=== PATIENT | female | born 1995 | race Hispanic/Latino ===

== ENCOUNTER 2023-08-01 14:59 | Day surgery (SDC) | payer OTHER ==
[2023-08-01] MEDS ORDERED: hydrALAZINE 20 MG/ML VIAL SLOW IVP PRN (15:07)
[2023-08-01 15:48] LABS: Creatinine, Urine 104.43 mg/dL (47-110)
[2023-08-01 16:03] VITALS: BMI 37.4
[2023-08-01 16:05] LABS: #Basophils 0.03 10x3/uL (0.0-0.2); #Eosinphils 0.08 10x3/uL (0.0-0.5); #Monocytes 0.55 10x3/uL (0.0-1.1); #Neutrophils 10.32 10x3/uL (1.5-8.4); %Basophils 0.2 % (0.0-2.0); %Eosinophils 0.6 % (0.0-6.0); %Lymphocytes 13.6 % (18.0-47.0); %Monocytes 4.3 % (0.0-10.0); %Neutrophils 80.8 % (40.0-75.0); Hematocrit 35.3 % (34.9-44.5); Mean Corpuscular Hemoglobin 27.3 pg (27.0-33.0); Mean Corpuscular Volume 80.2 fL (81.6-98.3); Mean Platelet Volume 9.9 fL (7.4-10.4); Platelet Count 388 10x3/uL (150-450); RBC Distribution Width 13.8 % (11.5-14.5); White Blood Cell (WBC) Count 12.8 10x3/uL (3.5-10.5)
[2023-08-01 16:13] LABS: ALT (SGPT) 11 U/L (8-55); AST (SGOT) 13 U/L (5-34); Albumin 2.7 g/dL (3.5-5.0); Alkaline Phosphatase 181 U/L (40-110); Anion Gap 13 mmol/L (10-20); BUN (Urea Nitrogen) 7 mg/dL (7.0-18.7); Bilirubin, Total 0.4 mg/dL (0.2-1.2); Calc. Creatinine Clearance 255 mL/min (70-130); Carbon Dioxide 18 mmol/L (22-29); Chloride 109 mmol/L (98-107); Estimated GFR 129; Globulin 3.8 g/dL (2.4-3.5); Glucose 125 mg/dL (70-105); Potassium 3.5 mmol/L (3.5-5.1); Protein, Total 6.5 g/dL (6.0-8.3); Sodium 136 mmol/L (136-145)
[2023-08-01] MEDS: Acetaminophen 500 MG TAB PO SCH (16:27)
== END 2023-08-01 17:50 | disposition home or self-care (01) ==
LOC: CSHLD/OP 14:59
PROVIDERS: ATTEND Student in an Organized Health Care Education/Training Program
DX: O99.891 Other specified diseases and conditions complicating pregnancy (principal); R03.0 Elevated blood-pressure reading, without diagnosis of hypertension; O99.213 Obesity complicating pregnancy, third trimester; O34.43 Maternal care for other abnormalities of cervix, third trimester; R87.612 Low grade squamous intraepithelial lesion on cytologic smear of cervix (LGSIL); Z3A.35 35 weeks gestation of pregnancy
CPT/HCPCS: 80053; 82570; 84156; 85025; 99285

== ENCOUNTER 2023-08-13 12:51 | Inpatient (IN) | payer MEDICAID, OTHER, SELFPAY ==
[2023-08-16 19:46] VITALS: BMI 43.0
[2023-08-16] MEDS ORDERED: Misoprostol 200 MCG TAB PR PRN (21:10)
[2023-08-16] MEDS ORDERED: Ibuprofen 800 MG TAB PO PRN (21:10)
[2023-08-16] MEDS ORDERED: Carboprost 250 MCG/ML AMP IM PRN (21:10)
[2023-08-16] MEDS ORDERED: Promethazine HCl 25 MG/ML VIAL IM PRN (21:10)
[2023-08-16] MEDS ORDERED: Tranexamic Acid 1,000 MG/10 ML VIAL IVP PRN (21:10)
[2023-08-16] MEDS ORDERED: Diphenoxylate HCl/Atropine Tablet PO PRN (21:10)
[2023-08-16] MEDS ORDERED: Ondansetron PF 4 MG/2 ML Vial IVP PRN (21:10)
[2023-08-16] MEDS ORDERED: hydrALAZINE 20 MG/ML VIAL SLOW IVP PRN (21:10)
[2023-08-16] MEDS ORDERED: Methylergonovine 0.2 MG/ML VIAL IM PRN (21:10)
[2023-08-16] MEDS ORDERED: Lidocaine 1% (PF) 30 ML VIAL SC PRN (21:10)
[2023-08-16] MEDS ORDERED: Acetaminophen 500 MG TAB PO PRN (21:10)
[2023-08-16 21:46] LABS: Hematocrit 36.2 % (34.9-44.5); Hemoglobin 12.3 g/dL (12.0-15.5); Mean Corpuscular Hemoglobin 27.5 pg (27.0-33.0); Mean Corpuscular Volume 80.8 fL (81.6-98.3); Mean Platelet Volume 10.5 fL (7.4-10.4); Platelet Count 389 10x3/uL (150-450); RBC Distribution Width 15.1 % (11.5-14.5); Red Blood Cell (RBC) Count 4.48 10x6/uL (3.90-5.03); White Blood Cell (WBC) Count 10.7 10x3/uL (3.5-10.5)
[2023-08-16 22:15] LABS: HBsAg Index 0.16 S/CO (0-0.99); Hep B Surf Ag - L&D Non-Reactive S/CO (NonReactive)
[2023-08-16 22:16] LABS: Syphilis Antibody Nonreactive (Nonreactive); Syphilis Antibody Index 0.05 S/CO (<1.00 Non-Reactive)
[2023-08-17] MEDS: Misoprostol 100 MCG TAB VAG SCH (00:38)
[2023-08-17] MEDS: Oxytocin 30 units/NS 500 ML 500 ML IV SCH (09:03)
[2023-08-18 04:12] LABS: #Basophils 0.02 10x3/uL (0.0-0.2); #Eosinphils 0.14 10x3/uL (0.0-0.5); #Monocytes 0.51 10x3/uL (0.0-1.1); #Neutrophils 8.74 10x3/uL (1.5-8.4); %Basophils 0.2 % (0.0-2.0); %Eosinophils 1.2 % (0.0-6.0); %Lymphocytes 18.3 % (18.0-47.0); %Monocytes 4.4 % (0.0-10.0); %Neutrophils 75.6 % (40.0-75.0); Hematocrit 35.3 % (34.9-44.5); Hemoglobin 11.8 g/dL (12.0-15.5); Mean Corpuscular HGB CONC 33.4 g/dL (32.0-36.0); Mean Corpuscular Hemoglobin 26.9 pg (27.0-33.0); Mean Corpuscular Volume 80.4 fL (81.6-98.3); Mean Platelet Volume 9.9 fL (7.4-10.4); Platelet Count 353 10x3/uL (150-450); RBC Distribution Width 15.1 % (11.5-14.5); Red Blood Cell (RBC) Count 4.39 10x6/uL (3.90-5.03); White Blood Cell (WBC) Count 11.6 10x3/uL (3.5-10.5)
[2023-08-18 04:23] LABS: ALT (SGPT) 12 U/L (8-55); AST (SGOT) 17 U/L (5-34); Albumin 2.6 g/dL (3.5-5.0); Alkaline Phosphatase 170 U/L (40-110); Anion Gap 12 mmol/L (10-20); BUN (Urea Nitrogen) 8 mg/dL (7.0-18.7); Bilirubin, Total 0.5 mg/dL (0.2-1.2); Calc. Creatinine Clearance 269 mL/min (70-130); Carbon Dioxide 19 mmol/L (22-29); Chloride 107 mmol/L (98-107); Estimated GFR 129; Globulin 3.4 g/dL (2.4-3.5); Glucose 79 mg/dL (70-105); Potassium 3.6 mmol/L (3.5-5.1); Sodium 134 mmol/L (136-145)
[2023-08-18] MEDS: Misoprostol 100 MCG TAB PO SCH ×2 (11:22→16:41)
[2023-08-18] MEDS ORDERED: Oxytocin 30 units/NS 500 ML 500 ML IV SCH (23:00)
[2023-08-18] MEDS: Oxytocin 30 units/NS 500 ML 500 ML IV SCH (23:01)
[2023-08-19] MEDS: Lactated Ringer's 1,000 ML IV SCH (05:07)
[2023-08-19] MEDS: Lidocaine 1% (PF) 30 ML VIAL ONE (09:06)
[2023-08-19] MEDS ORDERED: Ondansetron PF 4 MG/2 ML Vial IVP PRN (09:21)
[2023-08-19] MEDS ORDERED: diphenhydrAMINE 25 MG CAP PO PRN (09:21)
[2023-08-19] MEDS ORDERED: Benzocaine-Menthol 82.5 ML CAN TOP PRN (09:21)
[2023-08-19] MEDS ORDERED: Lanolin Ointment 7 GM TUBE TOP PRN (09:21)
[2023-08-19] MEDS ORDERED: Boostrix 0.5 ML (Tdap) VIAL (>/=7 yrs of age) IM ONE (09:21)
[2023-08-19] MEDS ORDERED: Preparation H Ointment 28 GM TUBE PR PRN (09:21)
[2023-08-19] MEDS ORDERED: Bisacodyl 10 MG SUPP PR PRN (09:21)
[2023-08-19] MEDS ORDERED: Milk Of Magnesia 30 ML UDCUP PO PRN (09:21)
[2023-08-19] MEDS ORDERED: hydrALAZINE 20 MG/ML VIAL SLOW IVP PRN (09:21)
[2023-08-19] MEDS ORDERED: Lidocaine 1% 20 ML MDV SC SCH (09:30)
[2023-08-19] MEDS: Oxytocin 30 units/NS 500 ML 500 ML IV SCH (11:08)
[2023-08-19] MEDS: Ibuprofen 800 MG TAB PO SCH (15:47)
[2023-08-19] MEDS: Ferrous Sulfate 325 MG TAB PO SCH (15:48)
[2023-08-19] MEDS: Acetaminophen 325 MG TAB PO PRN (20:46)
[2023-08-19] MEDS: Docusate 100 MG CAP PO SCH (22:05)
[2023-08-20] MEDS: Prenatal Vitamin 1 TAB PO SCH (09:14)
[2023-08-20 12:53] VITALS: BP 111/68; TEMP 98.3
== END 2023-08-20 15:30 | disposition home or self-care (01) | DRG 807 ==
LOC: CSHLD 08-16 18:04 → CSHPP 08-19 12:30
PROVIDERS: ADMIT Family Medicine; ATTEND Family Medicine
PROC: 3E0P7VZ Introduction of Hormone into Female Reproductive, Via Natural or Artificial Opening (ICD-10-PCS; principal; 2023-08-16)
PROC: 3E033VJ Introduction of Other Hormone into Peripheral Vein, Percutaneous Approach (ICD-10-PCS; 2023-08-16)
PROC: 0U7C7ZZ Dilation of Cervix, Via Natural or Artificial Opening (ICD-10-PCS; 2023-08-17)
PROC: 10E0XZZ Delivery of Products of Conception, External Approach (ICD-10-PCS; 2023-08-19)
PROC: 10H07YZ Insertion of Other Device into Products of Conception, Via Natural or Artificial Opening (ICD-10-PCS; 2023-08-19)
PROC: 0HQ9XZZ Repair Perineum Skin, External Approach (ICD-10-PCS; 2023-08-19)
DX: O13.4 Gestational [pregnancy-induced] hypertension without significant proteinuria, complicating childbirth (principal); Z37.0 Single live birth; Z3A.37 37 weeks gestation of pregnancy; O99.214 Obesity complicating childbirth; E66.9 Obesity, unspecified; O70.0 First degree perineal laceration during delivery
CPT/HCPCS: 36415; 80053; 85025; 85027; 86780; 86850; 86900; 86901; 87340; J2001; J2590; J7120